=== PATIENT | male | born 1970 | race Caucasian/White ===

== ENCOUNTER → 2016-06-22 | Outpatient (CLI) | payer OTHER ==
--- NOTE | 2016-06-22 20:12 | PN ---
This is a 46-year-old pleasant male patient is coming in for a compliancy check. The patient was diagnosed having with an AHI of 20 consistent with moderate to severe disease. He was treated with a CPAP pressure of 15 cm of water. On today's evaluation, the patient is very compliant with his CPAP therapy and he is using it on an average of 6.8 hours per night. His CPAP use for more than 4 hours is 28 out of 30 which is essentially above 90% and leak factor is only 5 liters per minute and his AHI while on treatment is down to 3.5. He is benefiting from CPAP therapy and he is waking up much more alert and awake. His sleep quality has improved considerably. He has no specific complaints. He has some issues with high pressure of and he was wondering whether there was any chance of lowering his pressure down knowing that he has to tighten up his fullface mask and this is sometimes affecting his face causing some redness and irritation. BP 143/90, pulse 80, respirations 16, temperature is 98.1. Weight is 240. GENERAL APPEARANCE: Calm, comfortable. HEENT: Mallampati class IV. There is no goiter. No neck mass. LUNGS: Clear to auscultation. HEART: Sounds are regular rate and rhythm. Normal S1, S2. ABDOMEN: Soft, nontender. No organomegaly. EXTREMITIES: No edema. No cyanosis or clubbing. IMPRESSION: 1. Obstructive sleep apnea AHI of 20 currently on CPAP pressure of 15. 2. Hypersomnia. Sears score is down to 5. 3. Obesity. PLAN: 1. Encourage weight loss. 2. Drop the CPAP pressure down to 13 cm of water. 3. Continue full face [employer] mask. 4. See me back in follow-up if needed.
== END | disposition home or self-care (01) ==
LOC: SLEEP 16:02
PROVIDERS: ATTEND Internal Medicine Critical Care Medicine
DX: G47.33 Obstructive sleep apnea (adult) (pediatric) (principal); G47.10 Hypersomnia, unspecified; E66.9 Obesity, unspecified